=== PATIENT | male | born 1960 | race Caucasian/White ===

== ENCOUNTER 2017-12-26 15:15 | Emergency (ER) | payer BC ==
[~2017-12-26] VITALS: Ht 180.3 cm; Wt 112.5 kg
[~2017-12-26 15:15] MED LIST: CIPRO500 MG PO; FLOMAX0.4 MG PO; MOTRIN800 MG PO; PERCOCET 5/31 TABLET PO; ZOFRAN ODT4 MG PO
[2017-12-26 16:44] VITALS: BP 132/82
== END 2017-12-26 16:46 | disposition home or self-care (01) ==
LOC: EME 15:15
DX: Z77.098 Contact with and (suspected) exposure to other hazardous, chiefly nonmedicinal, chemicals (principal)
CPT/HCPCS: 99281; 99283